=== PATIENT | female | born 1950 | race Caucasian/White ===

== ENCOUNTER → 2022-02-13 13:53 | Outpatient (BNVA) | payer MEDICARE, SELFPAY | PROVIDERS: PCP Family Medicine; Visit Provider Specialist | DX: R26.0 Ataxic gait (principal); F07.81 Postconcussional syndrome; Z95.0 Presence of cardiac pacemaker; Z91.81 History of falling | CPT/HCPCS: 99204 ==

== ENCOUNTER 2022-03-27 08:37 | Outpatient (CLI) | payer MEDICARE, SELFPAY ==
--- NOTE | 2022-03-27 09:00 | CT_ITS ---
WS: [id number] CT HEAD TECHNIQUE: Noncontrast CT of the head obtained from the skullbase to the vertex. CLINICAL INFORMATION: F07.81 - Postconcussional syndrome COMPARISON: None. DLP: 1011.[address] scans at [facility] use at least one of these dose optimization techniques: automated e xposure control; mA and/or kV adjustment per patient size (includes targeted exams where dose is matc hed to clinical indication); or iterative reconstruction. FINDINGS: No evidence of intracranial hemorrhage or mass effect. Ventricular system and basal cisterns are hernandez nt. Mild small vessel changes with mild parenchymal volume loss. Chronic benign arachnoid cyst in the superior cerebellar cistern with mild mass effect on the cerebellar vermis. This measures approximat мария 4.5 x 2.5 x 1.9 cm AP by transverse by craniocaudal. 4th ventricle is patent. Slightly low-lying cerebral tonsils. No hydrocephalus. Vascular calcification. Paranasal sinuses and mastoid air cells are well aerated. .Normal visualized soft tissues. CT/CT head wo con* [id number] IMPRESSION: 1. No evidence of intracranial hemorrhage 2. Mild small vessel changes with mild parenchymal volume loss. 3. Benign arachnoid cyst along the superior cerebellum with mild mass effect. This measures 4.5 x 2.5 x 1.9 cm AP by transverse by craniocaudal. No hydroceph alus. Normal 4th ventricle. 4. Paranasal sinuses and mastoid air cells well aerated. 5. No acute intracranial findings.
--- NOTE | 2022-03-27 12:00 | CT_ITS ---
WS: [id number] CT CERVICAL SPINE TECHNIQUE: Noncontrast CT of the cervical spine with coronal and sagittal reformatted images. CLINICAL INFORMATION: R26.0 - Ataxic gait COMPARISON: None. DLP: 238.[address] scans at [facility] use at least one of these dose optimization techniques: automated e xposure control; mA and/or kV adjustment per patient size (includes targeted exams where dose is matc hed to clinical indication); or iterative reconstruction. FINDINGS: Straightening of the normal cervical lordosis. Mild spondylitic changes. Slight anterolisthesis C6 on C7. Mastoid air cells are well aerated. Normal posterior nasopharynx. Normal parapharyngeal fat. Kvng g apices are well aerated. C2-C3: Mild facet arthropathy. Spinal canal and foramen are patent. C3-C4: Advanced RIGHT facet arthropathy. Moderate RIGHT and no significant LEFT foraminal narrowing. Spinal canal is patent. C4-C5: Slight anterolisthesis C4 on C5. Mild LEFT and no significant RIGHT foraminal narrowing. Spina l canal is patent. Moderate facet arthropathy. Tiny central protrusion with mild central canal stenos is. C5-C6: Slight anterolisthesis. Shallow central disc protrusion with mild central canal stenosis. Slig ht contact of the cervical cord. Moderate facet arthropathy. Moderate RIGHT and no significant LEFT f oraminal narrowing. Moderate facet arthropathy. C6-C7: Disc osteophyte complex with endplate ridging. Slight anterolisthesis. Mild central canal sten osis. Mild LEFT greater than RIGHT bony foraminal narrowing. Moderate facet arthropathy. Mild central canal stenosis. C7-T1: No significant disc bulging. Spinal canal and foramen are patent. Mild LEFT greater than RIGHT T1-T2 bony foraminal narrowing. Visualized posterior nasopharynx: Normal. Prevertebral soft tissues: Normal. CT/CT cervical spin wo con* [id number] IMPRESSION: 1. Straightening of the normal cervical lordosis. Mild spondylitic changes wit h slight anterolisthesis C5 on C6. Disc space narrowing worse at C6-C7. 2. Mild central canal stenosis C3-C4 C5-C6 and C6-C7. 3. Multilevel bony foraminal narrowing moderate at RIGHT C3-C4, moderate LEFT C4-C5, moderate RIGHT C5-C6, and mild LEFT C7-T1. 4. Moderate facet arthropathy worse at RIGHT C3-C4, bilateral C4-C5 and bilate ral C5-C6.
== END 2022-03-27 08:38 | disposition home or self-care (01) ==
PROVIDERS: PCP Family Medicine; Visit Provider Specialist
DX: R26.0 Ataxic gait (principal); F07.81 Postconcussional syndrome; G93.0 Cerebral cysts; M48.02 Spinal stenosis, cervical region; M47.812 Spondylosis without myelopathy or radiculopathy, cervical region
CPT/HCPCS: 70450; 72125

== ENCOUNTER → 2022-03-27 08:38 | Outpatient (BNVA) | payer MEDICARE, SELFPAY | PROVIDERS: PCP Family Medicine; Visit Provider Specialist | DX: R41.89 Other symptoms and signs involving cognitive functions and awareness (principal); R26.89 Other abnormalities of gait and mobility; G93.0 Cerebral cysts; F07.81 Postconcussional syndrome; M47.812 Spondylosis without myelopathy or radiculopathy, cervical region | CPT/HCPCS: 99215 ==